=== PATIENT | female | born 1995 | race Two or more races ===

== ENCOUNTER 2020-07-19 01:37 | Emergency (ER) | payer MEDICAID, OTHER ==
[~2020-07-19] VITALS: Ht 157.5 cm; Wt 68.0 kg
[2020-07-19 04:00] VITALS: BP 111/73
== END 2020-07-19 04:53 | disposition home or self-care (01) ==
LOC: ER 01:39
DX: S93.402A Sprain of unspecified ligament of left ankle, initial encounter (principal); Z98.51 Tubal ligation status; W10.8XXA Fall (on) (from) other stairs and steps, initial encounter; Y93.89 Activity, other specified; Y92.89 Other specified places as the place of occurrence of the external cause; Y99.8 Other external cause status
CPT/HCPCS: 73610; 73630